=== PATIENT | male | born 1985 | race African-American/Black ===

== ENCOUNTER 2016-10-03 18:15 | Emergency (ER) | payer OTHER ==
[2016-10-03 18:38] VITALS: BP 126/77; PULSE 109; TEMP 102; BMI 65.3
--- NOTE | 2016-10-03 19:37 | PDOC ---
History of Present Illness <Tomás Morrison - Last Filed: 10/03/16 19:36> - General History Source: Patient, Old Records Exam Limitations: No Limitations - History of Present Illness Initial Comments: 10/03/16 20:05 The patient is a 31 year old male with no significant past medical history who presents to the ED with cold like symptoms. The patient reports throat paint and body aches. The patient notes that he has had sick contacts at home. <Salty Watt - Last Filed: 10/03/16 23:55> - General Chief Complaint: Pain, Acute Stated Complaint: FEVER/SORE THROAT/BODY ACHE Time Seen by Provider: 10/03/16 19:34 Past History - Past Medical History Suicide Attempt (Hx): No Other medical history: PT DENIES MEDICAL HX - Immunization History Immunization Up to Date: No - Psycho/Social/Smoking Cessation Hx Anxiety: No Suicidal Ideation: No Smoking Status: No Smoking History: Former smoker Have you smoked in the past 12 months: No Number of Cigarettes Smoked Daily: 0 If you are a former smoker, when did you quit?: 2009 Information on smoking cessation initiated: No Hx Alcohol Use: No Drug/Substance Use Hx: No Substance Use Type: None <Tomás Morrison - Last Filed: 10/03/16 19:36> <Salty Watt - Last Filed: 10/03/16 23:55> - Past Medical History Allergies/Adverse Reactions: Allergies Allergy/AdvReac Type Severity Reaction Status Date / Time No Known Allergies Allergy Verified 10/03/16 18:38 Home Medications: Ambulatory Orders NK [No Known Home Medication] 10/03/16 Review of Systems - Review of Systems Able to Perform ROS?: Yes Constitutional: Yes: Symptoms Reported, See HPI, Other HEENTM: Yes: Symptoms Reported, See HPI, Throat Swelling Musculoskeletal: Yes: Symptoms Reported, See HPI, Other <Salty Watt - Last Filed: 10/03/16 23:55> *Physical Exam - Vital Signs Last Vital Signs Temp Pulse Resp BP Pulse Ox 102.0 F H 109 H 18 126/77 97 10/03/16 18:35 10/03/16 18:35 10/03/16 18:35 10/03/16 18:35 10/03/16 18:35 <Tomás oMrrison - Last Filed: 10/03/16 19:36> - Vital Signs Last Vital Signs Temp Pulse Resp BP Pulse Ox 102.0 F H 109 H 18 126/77 97 10/03/16 18:35 10/03/16 18:35 10/03/16 18:35 10/03/16 18:35 10/03/16 18:35 - Physical Exam Comments: 10/03/16 20:05 PE GEN: AA NAD HEEN: Clear NECK: Lymphadenopathy but supple CARD: Normal RESP: Clear ABD: Soft NEURO: Intact <Salty Watt - Last Filed: 10/03/16 23:55> *DC/Admit/Observation/Transfer <Tomás Morrison - Last Filed: 10/03/16 19:36> - Attestations Scribe Attestion: 10/03/16 20:07 Documentation prepared by Salty Watt, acting as chief medical technologist for Tomás Morriosn MD. <Salty Watt - Last Filed: 10/03/16 23:55> Diagnosis at time of Disposition: Viral syndrome - Discharge Dispostion Disposition: HOME Condition at time of disposition: Good - Referrals Referrals: STAFF,NOT ON [Primary Care Provider] - Call tomorrow - Patient Instructions Additional Instructions: PLENTY OF FLUIDS (WATER/GATORADE) MOTRIN/TYLENOL FOR FEVER OR PAIN REST RETURN IF FEVER, VOMITING, SHORTNESS OF BREATH
== END 2016-10-03 19:42 | disposition home or self-care (01) ==
LOC: JER 18:15
DX: B34.9 Viral infection, unspecified (principal)
CPT/HCPCS: 99282-25

== ENCOUNTER 2016-10-25 13:04 | Emergency (ER) | payer OTHER ==
[2016-10-25 13:24] VITALS: BP 125/77; PULSE 80; TEMP 98.2; BMI 29.0
--- NOTE | 2016-10-25 14:15 | PDOC ---
History of Present Illness - General Chief Complaint: Cold Symptoms Stated Complaint: HEADACHES, SORE THROAT Time Seen by Provider: 10/25/16 13:22 History Source: Patient - History of Present Illness Timing/Duration: reports: yesterday Associated Symptoms: reports: cough, fever/chills, headache, sore throat. denies: chest pain/soreness, earache, facial pain, muscle aches, nasal congestion, nasal drainage, wheezing Past History - Past Medical History Allergies/Adverse Reactions: Allergies Allergy/AdvReac Type Severity Reaction Status Date / Time No Known Allergies Allergy Verified 10/25/16 13:18 Home Medications: Ambulatory Orders NK [No Known Home Medication] 10/03/16 Hypercholesterolemia: Yes Suicide Attempt (Hx): No - Immunization History Immunization Up to Date: No - Psycho/Social/Smoking Cessation Hx Anxiety: No Suicidal Ideation: No Smoking Status: No Smoking History: Former smoker Have you smoked in the past 12 months: No Number of Cigarettes Smoked Daily: 0 If you are a former smoker, when did you quit?: 2009 Information on smoking cessation initiated: No Hx Alcohol Use: No Drug/Substance Use Hx: No Substance Use Type: None Review of Systems - Review of Systems Constitutional: Yes: Fever HEENTM: No: Ear Pain, Nose Congestion Respiratory: Yes: Cough. No: Shortness of Breath, Wheezing ABD/GI: No: Diarrhea, Nausea, Vomiting *Physical Exam - Vital Signs Last Vital Signs Temp Pulse Resp BP Pulse Ox 98.2 F 80 19 125/77 99 10/25/16 13:18 10/25/16 13:18 10/25/16 13:18 10/25/16 13:18 10/25/16 13:18 - Physical Exam General Appearance: Yes: Appropriately Dressed. No: Apparent Distress HEENT: positive: Normal ENT Inspection, Normal Voice. negative: Scleral Icterus (R), Scleral Icterus (L) Neck: positive: Supple. negative: Lymphadenopathy (R), Lymphadenopathy (L) Respiratory/Chest: positive: Lungs Clear, Normal Breath Sounds. negative: Respiratory Distress Cardiovascular: positive: Regular Rate, S1, S2 Integumentary: positive: Dry, Warm Neurologic: positive: Fully Oriented, Alert, Normal Mood/Affect Medical Decision Making - Medical Decision Making 10/25/16 14:19 31 yo M, no sig hx, here w/ sore throat w/ cough, WORKMAN and subj fever x 2 days. No sob, neck stiffness, n/v/d. Pt was seen in ED several weeks ago and dx w/ uri. States sxs improved then but re-occured 2 days ago. Denies sick contacts. Patient well-appearing and stable with unremarkable exam. Most likely viral. DC with supportive treatment and PMD follow-up 10/25/16 14:24 *DC/Admit/Observation/Transfer Diagnosis at time of Disposition: URI (upper respiratory infection) Qualifiers: URI type: unspecified viral URI Qualified Code(s): J06.9 - Acute upper respiratory infection, unspecified - Discharge Dispostion Disposition: HOME Condition at time of disposition: Good - Patient Instructions Printed Discharge Instructions: DI for Viral Upper Respiratory Infection -- Adult
== END 2016-10-25 14:21 | disposition home or self-care (01) ==
LOC: JER 13:04 → JERFT 13:04
DX: J06.9 Acute upper respiratory infection, unspecified (principal)
CPT/HCPCS: 99281-25

== ENCOUNTER 2017-04-08 21:08 | Emergency (ER) | payer OTHER ==
[2017-04-08 21:34] VITALS: BP 121/66; PULSE 77; TEMP 97.5; BMI 28.8
--- NOTE | 2017-04-08 21:57 | PDOC ---
Attending Attestation - HPI HPI: 04/08/17 23:16 Pt comes with headache on and off. Ongoing for a week. - Physicial Exam PE: 04/08/17 23:16 Agree with resident exam. - Medical Decision Making 04/08/17 23:16 Patient Name: Ayo Agudelo THIS IS A PRELIMINARYREPORT FROM IMAGING FINANCIAL ACCOUNTING ANALYST EXAM: CT brain without contrast IMAGES: 167 EXAM DATE AND TIME: 2017-04-08 22: 34:24.0 REASON FOR EXAM: Headache COMPARISON: No FINDINGS: Normal brain. No acute intracranial abnormality. No hemorrhage. No visible infarct or mass. Osseous structures are intact THIS DOCUMENT HAS BEEN ELECTRONICALLY SIGNED 04/08/17 23:17 Pt will be discharged home with analgesia 04/08/17 23:18 Neuro follow up.
[2017-04-08] MEDS ORDERED: ACETAMINOPHEN 325 MG TABLET (FP) PO ONE (22:01)
--- NOTE | 2017-04-08 22:01 | PDOC ---
History of Present Illness - General Chief Complaint: Pain Stated Complaint: HEAD ACHE Time Seen by Provider: 04/08/17 21:46 - History of Present Illness Initial Comments: 04/08/17 22:21 Patient is a 31 year old male with no PMH who presents with concern for headache. The patient reports a 1 week history of intermittent sharp left sided occipital headaches lasting 2-3 minutes before self resolving prompting his visit to the ED today. He states that he has not had headaches like this before and states that they feel more superficial than deep. He reports that nothing worsens the headaches and he has not tried anything for them as they usually self resolve. He denies any vision changes, photophobia, phonophobia, numbness, tingling, weakness, fevers, chills, SOB, chest pain, abdominal pain, or changes with urination or bowel movements. Past History - Past Medical History Allergies/Adverse Reactions: Allergies Allergy/AdvReac Type Severity Reaction Status Date / Time No Known Allergies Allergy Verified 04/08/17 21:24 Home Medications: Ambulatory Orders Omeprazole 40 mg PO DAILY 04/08/17 Hypercholesterolemia: Yes Suicide Attempt (Hx): No - Immunization History Immunization Up to Date: No - Psycho/Social/Smoking Cessation Hx Anxiety: No Suicidal Ideation: No Smoking Status: No Smoking History: Never smoked Have you smoked in the past 12 months: No Number of Cigarettes Smoked Daily: 0 If you are a former smoker, when did you quit?: 2009 Information on smoking cessation initiated: No Hx Alcohol Use: No Drug/Substance Use Hx: No Substance Use Type: None Review of Systems - Review of Systems Constitutional: No: Chills, Fever HEENTM: No: Recent change in vision, Double Vision, Nose Congestion, Hearing Loss Respiratory: No: Cough, Shortness of Breath Cardiac (ROS): No: Chest Pain, Palpitations, Chest Tightness ABD/GI: No: Constipated, Diarrhea, Nausea, Vomiting : No: Burning, Dysuria Musculoskeletal: No: Neck Pain Integumentary: No: Rash Neurological: Yes: Headache. No: Numbness, Paresthesia, Tingling, Weakness *Physical Exam - Vital Signs Last Vital Signs Temp Pulse Resp BP Pulse Ox 97.5 F L 77 20 121/66 100 04/08/17 21:24 04/08/17 21:24 04/08/17 21:24 04/08/17 21:24 04/08/17 21:24 - Physical Exam Comments: 04/08/17 22:27 General Appearance: Nourished. No Apparent Distress HEENT: EOMI, CHRISTY. negative: Photophobia, Pharyngeal Erythema, Tonsillar Exudate, Tonsillar Erythema Respiratory/Chest: Lungs Clear, Normal Breath Sounds. No Crackles, Rales, Rhonchi, Wheezing Cardiovascular: Regular Rhythm, Regular Rate. No Murmur, Gallop/S3, Gallop/S4 Gastrointestinal/Abdominal: Normal Bowel Sounds, Soft. No Guarding, Rebound, Tenderness Extremity: Normal Capillary Refill Integumentary: Normal Color, Dry, Warm Neurologic: hydrator II-XII NML intact, Fully Oriented, Alert, Normal Mood/Affect, Normal Response, Motor Strength 5/5. No Facial Droop, Normal Finger to Nose ED Treatment Course - RADIOLOGY Radiology Studies Ordered: Category Date Time Status HEAD CT WITHOUT CONTRAST [CT] Stat CT Scan 04/08/17 22:01 Ordered Medical Decision Making - Medical Decision Making 04/08/17 23:10 Patient is a 31 year old male with no PMH who presents with concern for headache. Given his history and physical exam, it is likely his symptoms are due to a tension headache or migraine. However we will obtain a CT head to evaluate for any other intracrainal process such as subarrachnoid hemorrhage. The patient is not currently having headache and we will reevaluate him after CT. 04/08/17 23:21 CT head preliminarily read as no acute intracranial process by news production assistant radiologist pending official read. Patient reports improvement in his symptoms. We discussed the results with the patient and feel comfortable discharging him home with neurology follow up. The patient voiced understanding and is agreeable with the plan. *DC/Admit/Observation/Transfer Diagnosis at time of Disposition: Headache Qualifiers: Headache type: unspecified Headache chronicity pattern: unspecified pattern Intractability: not intractable Qualified Code(s): R51 - Headache - Discharge Dispostion Disposition: HOME Condition at time of disposition: Improved Admit: No - Referrals Referrals: Libby Vargas MD [Primary Care Provider] - Luis Zuñiga MD [Staff Physician] - - Patient Instructions Printed Discharge Instructions: DI for Headache Additional Instructions: Please return to the ER if you experience concerning or worsening symptoms. Please call to follow up with our neurologist for concerns of headache. The number has been provided with your paperwork. Please follow up with your primary care provider to discuss your ER visit. - Attestations Physician Attestion: 04/08/17 23:24 I, Dr. Roger Brody, attest that this document has been prepared under my direction and personally reviewed by me in its entirety. I further attest, that it accurately reflects all work, treatment, procedures and medical decision -making performed by me.
[2017-04-08] MEDS ORDERED: ACETAMINOPHEN 325 MG TABLET (FP) ONE (22:10)
== END 2017-04-08 23:39 | disposition home or self-care (01) ==
LOC: JER 21:08
DX: R51 Headache (principal); Z87.891 Personal history of nicotine dependence
CPT/HCPCS: 70450-TC; 99282-25

== ENCOUNTER 2017-07-20 07:58 | Observation (INO) | payer OTHER ==
[2017-07-20 08:07] VITALS: BMI 28.8
--- NOTE | 2017-07-20 08:33 | PDOC ---
History of Present Illness - General Chief Complaint: Pain, Acute Stated Complaint: EYE PROBLEM Time Seen by Provider: 07/20/17 08:15 - History of Present Illness Initial Comments: 07/20/17 08:16 32 yo M with no significant pmh who presents with R eye painless vision loss. Patient reports onset of central painless R eye visual loss for 3-5 minutes this AM upon awakening. Went to sleep at 11 AM yest evening. States that he woke up and could not see anything out of R eye. He rubbed his eye for 3-5 minutes and vision was restored. Endorses 1 week of fleeting blurry vision lasting seconds and resolving spontaneously. No illiciting factors. Endorses mild frontal WORKMAN x 2 this week, and current reflux type pain. No eye redness, pruritus, discharge,foreign body sensation, or dry eyes. Denies eye trauma, scratching, or recent swimming. Denies N/V, fevers/chills, chest pain, SOB, weakness, sensory changes, dizziness, slurred speech, drooping of face. Last seen by Recreation Facility Attendant 2 months ago with negative workup. Attempted to go to outpatient scheduler this week. CT HEAD (04/08/17) unremarkable. Past History - Past Medical History Allergies/Adverse Reactions: Allergies Allergy/AdvReac Type Severity Reaction Status Date / Time No Known Allergies Allergy Verified 07/20/17 08:00 Home Medications: Ambulatory Orders Omeprazole 40 mg PO DAILY 04/08/17 COPD: No Hypercholesterolemia: Yes - Immunization History Immunization Up to Date: No - Suicide/Smoking/Psychosocial Hx Smoking Status: No Smoking History: Former smoker Have you smoked in the past 12 months: Yes Number of Cigarettes Smoked Daily: 0 If you are a former smoker, when did you quit?: 10 yrs ago Information on smoking cessation initiated: No Hx Alcohol Use: No Drug/Substance Use Hx: No Substance Use Type: None Review of Systems - Review of Systems Comments:: 07/20/17 08:57 GENERAL/CONSTITUTIONAL: No fever or chills. No weakness. HEAD, EYES, EARS, NOSE AND THROAT: Right eye vision loss. No ear pain or discharge. No sore throat.- CARDIOVASCULAR: No chest pain or shortness of breath RESPIRATORY: No cough, wheezing, or hemoptysis. GASTROINTESTINAL: + Abdominal pain. No nausea, vomiting, diarrhea or constipation. GENITOURINARY: No dysuria, frequency, or change in urination. MUSCULOSKELETAL: No joint or muscle swelling or pain. No neck or back pain. SKIN: No rash NEUROLOGIC: No headache, vertigo, loss of consciousness, or change in strength/ sensation. ENDOCRINE: No increased thirst. No abnormal weight change HEMATOLOGIC/LYMPHATIC: No anemia, easy bleeding, or history of blood clots. ALLERGIC/IMMUNOLOGIC: No hives or skin allergy. *Physical Exam - Vital Signs Last Vital Signs Temp Pulse Resp BP Pulse Ox 97.9 F 83 20 130/92 100 07/20/17 08:00 07/20/17 08:00 07/20/17 08:00 07/20/17 08:00 07/20/17 08:00 - Physical Exam Comments: 07/20/17 08:58 GENERAL: Awake, alert, and fully oriented, in no acute distress HEAD: No signs of trauma, normocephalic, atraumatic EYES: PERRLA, EOMI, sclera anicteric, conjunctiva clear. Fundoscopic exam with no evidence of vascular engorgement or papilledema. Visual acuity 20/25 L eye and 20/40 R eye. Peripheral vision intact. ENT: Auricles normal inspection, hearing grossly normal, nares patent, oropharynx clear without exudates. Moist mucosa NECK: Normal ROM, supple, no lymphadenopathy, JVD, or masses LUNGS: No distress, speaks full sentences, clear to auscultation bilaterally HEART: Regular rate and rhythm, normal S1 and S2, no murmurs, rubs or gallops, peripheral pulses normal and equal bilaterally. ABDOMEN: Soft, nontender, normoactive bowel sounds. No guarding, no rebound. No masses EXTREMITIES : Normal inspection, Normal range of motion, no edema. No clubbing or cyanosis. NEUROLOGICAL: Cranial nerves II through XII grossly intact. Normal speech, normal gait, no focal sensorimotor deficits SKIN: Warm, Dry, normal turgor, no rashes or lesions noted. Heart Score/ECG Review - History History: Slightly suspicious - Electrocardiogram EKG: Normal - Carrier Carrier: Normal - ECG Impressions Normal ECG: Yes Non-specific ST Elevation: No Ischemic Changes: No Bradycardia: No Torsades sandra Pointes: No WPW: No ED Treatment Course - LABORATORY CBC & Chemistry Diagram: 07/20/17 08:58 07/20/17 08:58 Medical Decision Making - Medical Decision Making 07/20/17 09:09 32 yo M with no significant pmh who presents rapid onset of central painless R eye visual loss for 3-5 minutes with spontaneous resolution this AM upon awakening. Endorses 1 week of fleeting blurry vision lasting seconds and resolving spontaneously. Endorses mild frontal WORKMAN x 2 this week, and current reflux type pain. No eye redness, pruritus, discharge,foreign body sensation, or dry eyes. Denies eye trauma, scratching, or recent swimming. Does not wear contacts or glasses. Denies N/V, fevers/chills, weakness, sensory changes, dizziness, slurred speech, drooping of face. Physical exam did not reveal neuro deficits, or peripheral vision defects. L eye 20/25. R eye 20/40. Hemodynamically stable Patient does not present with neurological deficits, and has negative pre hospital [facility] stroke score. Will work pt. up for Stroke/TIA r/o. Also reasonable to consider optic neuritis vs. Amaurosis fugax vs. ocular migraine in patient with painless vision loss. Low suspicion for acute angle glaucoma, retinal vein/artery occlusion, or retinal detachment. Patient currently asymptomatic. ED Course: Stroke/TIA protocol, CT HEAD NON CON, CBC, CMP, Lipase PEPCID, NS 1 L NIHSS: 0 07/20/17 09:47 07/20/17 09:53 EKG: NSR with absent JIMMIE, STD, or TWI. Ophthalmology consult Dr. Kaye Franco called and discussed patient case. Will call back following vision recheck. 07/20/17 10:43 CT HEAD: No acute hemorrhage or acute pathology. 07/20/17 11:25 07/20/17 11:26 CBC, CMP: Unremarkable 07/20/17 11:30 Will admit to OBS/Inpatient for further evaluation and MRI. Admit to Dr. Maggi Naik. 07/20/17 12:59 Repeat Visual Acuity 20/25 R, 20/25 L *DC/Admit/Observation/Transfer Diagnosis at time of Disposition: Vision loss of right eye - Discharge Dispostion Admit: Yes - Referrals - Patient Instructions - Post Discharge Activity
[2017-07-20] MEDS ORDERED: FAMOTIDINE 20 MG/50 ML IVPB 20 MG/50 ML MG IVPB ONE ×2 (08:55→08:59)
[2017-07-20] MEDS ORDERED: SODIUM CHLORIDE 1,000 ML IV SCH (09:00)
[2017-07-20 09:32] LABS: URINE APPEARANCE CLEAR; URINE BILIRUBIN NEGATIVE (NEGATIVE); URINE BLOOD NEGATIVE (NEGATIVE); URINE COLOR LT. YELLOW; URINE GLUCOSE (UA) NEGATIVE (NEGATIVE); URINE KETONE NEGATIVE (NEGATIVE); URINE NITRITE NEGATIVE (NEGATIVE); URINE PROTEIN NEGATIVE (NEGATIVE); URINE UROBILINOGEN 0.2 mg/dL (0.2-1.0)
[2017-07-20 09:33] LABS: BASOPHIL 0.7 % (0-2.0); EOSINOPHIL 1.9 % (0-4.5); MCH 30.4 pg (25.7-33.7); MCHC 33.6 g/dl (32.0-35.9); MEAN CELL VOLUME 90.7 fl (80-96); NEUTROPHILS 54.1 % (42.8-82.8); PLATELET COUNT 194 K/MM3 (134-434); RDW 13.4 % (11.9-15.9); WHITE BLOOD COUNT 5.4 K/mm3 (4.0-10.0)
--- NOTE | 2017-07-20 09:42 | PDOC ---
Attending Attestation - Resident Resident Name: Quentin Lacey - ED Attending Attestation I have performed the following: I have examined & evaluated the patient, The case was reviewed & discussed with the resident, I agree w/resident's findings & plan, Exceptions are as noted - HPI HPI: 07/20/17 09:33 32 year old male with no past medical history presents with right eye temporary loss of vision. The patient reported bilateraly eye blurriness for a week. Does not wear contacts or glasses. Stated this morning, woke up this morning at 6 am (after going to bed at 11 pm the night before). Stated that he woke up and he had complete central vision loss (with preservation of the periphery). Stated that he rubbed his eye for several minutes, and his vision returned. Denied headaches, nausea, vomiting. Denies other neurological deficits such as slurring of speech, drooling, numbness, weakness. Denied chest pain or SOB. Denies family history of demyleinating disease or strokes. 07/20/17 09:43 Also endorses 1 week of epigastric abd pain improved with eating. Burning sensation. States likely his GERD. - Physicial Exam PE: 07/20/17 09:42 GENERAL: NAD, AAOx3 HEENT: PUPILS Reactive and equal to light, no visual field cut deficits, OS: 20/ 25, OD: 20/40, no injection or discharge. NECK: supple CV: RRR, +S1, s2 PULM: CTA b/l ABD: soft, nondistended, nontender., NEURO: CN II-XII intact. 5/5 strength upper and lower extremities. sensation intact throughou. Speech normal. Gait normal, No pronator drift. - Medical Decision Making 07/20/17 09:46 Vital Signs Temp Pulse Resp BP Pulse Ox 97.9 F 70 20 130/92 100 07/20/17 08:00 07/20/17 08:53 07/20/17 08:00 07/20/17 08:00 07/20/17 08:53 32 year old male presents with transient R eye loss concerning for optic neuritis vs. central retinal arterial occlusion vs. amarosis fugax. Eye currently back at baseline. Pt endorsed NO curtains or floaters or flashing lights. Neurologically intact. Outside the TPA window. However, will need to consider TIA as well. Head CT Labs Optho consult Aspirin if head CT shows no hemorrhage. Admit 07/20/17 10:42 CBC, BMP 07/20/17 08:58 07/20/17 08:58 CMP Sodium 138 mmol/L (136-145) 07/20/17 08:58 Potassium 4.1 mmol/L (3.5-5.1) 07/20/17 08:58 Chloride 104 mmol/L (98-107) 07/20/17 08:58 Carbon Dioxide 30 mmol/L (21-32) 07/20/17 08:58 Anion Gap 4 (8-16) L 07/20/17 08:58 BUN 16 mg/dL (7-18) 07/20/17 08:58 Creatinine 1.1 mg/dL (0.7-1.3) 07/20/17 08:58 Creat Clearance w eGFR > 60 (>60) 07/20/17 08:58 Random Glucose 105 mg/dL (74-106) 07/20/17 08:58 Calcium 8.6 mg/dL (8.5-10.1) 07/20/17 08:58 Total Bilirubin 0.4 mg/dL (0.2-1.0) 07/20/17 08:58 AST 13 U/L (15-37) L 07/20/17 08:58 ALT 34 U/L (12-78) 07/20/17 08:58 Alkaline Phosphatase 60 U/L (45-117) 07/20/17 08:58 Creatine Kinase 143 IU/L (39-308) 07/20/17 08:58 Troponin I < 0.02 ng/ml (0.00-0.05) 07/20/17 08:58 Total Protein 8.2 g/dl (6.4-8.2) 07/20/17 08:58 Albumin 4.1 g/dl (3.4-5.0) 07/20/17 08:58 Triglycerides 73 mg/dL (35-160) 07/20/17 08:58 Cholesterol 195 mg/dL (50-200) 07/20/17 08:58 Total LDL Cholesterol 123 mg/dL (5-100) H 07/20/17 08:58 HDL Cholesterol 54 mg/dL (40-60) 07/20/17 08:58 Lipase 113 U/L (73-393) 07/20/17 08:58 Urine Test Results Urine Color Lt. yellow 07/20/17 08:58 Urine Appearance Clear 07/20/17 08:58 Urine pH 6.0 (5.0-8.0) 07/20/17 08:58 Ur Specific [place] 1.010 (1.001-1.035) 07/20/17 08:58 Urine Protein Negative (NEGATIVE) 07/20/17 08:58 Urine Glucose (UA) Negative (NEGATIVE) 07/20/17 08:58 Urine Ketones Negative (NEGATIVE) 07/20/17 08:58 Urine Blood Negative (NEGATIVE) 07/20/17 08:58 Urine Nitrite Negative (NEGATIVE) 07/20/17 08:58 Urine Bilirubin Negative (NEGATIVE) 07/20/17 08:[address] negative. Consult neuro 07/20/17 11:09 Dr. Lacey discussed consultation with Dr. Fuller (neuro) Case discussed with [facility] hospitalist. Admit to tele obs Heart Score/ECG Review #1 ECG reviewed & interpreted by me at: 09:30 07/20/17 09:49 NSR 72, no std/[place], normal axis, normal intervals, QTC 392 msec NIH Stroke Scale - Last Known Well Date/Time & Onset Date Last Known Well: 07/19/17 Time Last Known Well: 23:00 - Initial Evaluation Level of consciousness: Alert Ask patient the month and their age: Answers both correctly Ask patient to open & close eyes; make fist and let go: Obeys both correctly Best gaze (horizontal eye movement): Normal Visual field testing: No visual field loss Facial paresis (Show teeth/raise eyebrows/close eyes tight): Normal symmetrical movement Motor Function: Left Arm: Normal Motor Function: Right Arm: Normal (extends arm 90 (or 45) degrees for 10 seconds without drift Motor Function: Left Leg: Normal (extends leg 30 degrees for 5 seconds without drift) Motor Function: Right Leg: Normal (extends leg 30 degrees for 5 seconds without drift) Limb Ataxia: No ataxia Sensory(Use pinprick test arms,legs,trunk,face/side to side): Normal Best language (Describe picture, name items, read sentences): No Aphasia Dysarthria (read several words): Normal articulation Extinction and Inattention: No abnormality - Total Score NIH Stroke Scale Score: 0
[2017-07-20 09:47] LABS: ALBUMIN 4.1 g/dl (3.4-5.0); ANION GAP 4 (8-16); BILIRUBIN,TOTAL 0.4 mg/dL (0.2-1.0); CALCIUM 8.6 mg/dL (8.5-10.1); CHOLESTEROL 195 mg/dL (50-200); CO2 30 mmol/L (21-32); CREATININE 1.1 mg/dL (0.7-1.3); GLUCOSE,RANDOM 105 mg/dL (74-106); SGOT/AST 13 U/L (15-37); SGPT/ALT 34 U/L (12-78); TOT PROT 8.2 g/dl (6.4-8.2)
[2017-07-20 09:48] LABS: ALK PHOS 60 U/L (45-117); CPK 143 IU/L (39-308); TROPONIN I < 0.02 ng/ml (0.00-0.05)
[2017-07-20 09:55] LABS: INR 1.05 (0.82-1.09); PROTHROMBIN TIME (PATIENT) 11.9 SEC (9.98-11.88)
--- NOTE | 2017-07-20 11:58 | CON.NEURO ---
Consult Consult Specialty:: Neurology Referred by:: Dudley Faria MD Reason for Consultation:: Transient Right Unilateral Visual [place] - History of Present Illness Chief Complaint: I couldn't see out of my right eye History of Present Illness: Mr. Agudelo awoke around 7AM to walk his dog, feeling OK, and while walking noticed that he couldn't see well out of his right eye. He describes a central area of severe blurring that totally obscured his vision centrally, as if he had an eyelash in front of his eye. He kept rubbing his eye and after about 3 minutes his vision returned to normal. He denies any headache or eye pain around the time of the event and at this point his vision is normal. His only complaint now is a vaguely described sense of abnormal feelings in his legs, variably described "as if my blood were flowing" or "tingling". He denies recent headaches. He was evaluated in the ER in March for about a week of head "pains" brief intermittent sharp pains at various points in his head, with no associated symptoms, such as photophobia, phonophobia or nausea. He had a normal CT and after a week the pains disappeared and haven't bothered him since. He says that over the past week he's been going to eye doctors complaining of intermittent bilateral visual blurring, not like this. He denies a family history of migraine. 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 Home Medications - Allergies Allergies/Adverse Reactions: Allergies Allergy/AdvReac Type Severity Reaction Status Date / Time No Known Allergies Allergy Verified 07/20/17 08:00 - Home Medications Home Medications: Ambulatory Orders Omeprazole 40 mg PO DAILY 04/08/17 Family Disease History - Family Disease History Family History: Unremarkable (some diabetes, cancer, no migraine) Review of Systems Findings/Remarks: no headaches, other sensory loss, Physical Exam-Neuro Vital Signs: Vital Signs Temperature 97.9 F 07/20/17 08:00 Pulse Rate 70 07/20/17 08:53 Respiratory Rate 20 11/23/17 08:00 Blood Pressure 130/92 07/20/17 08:00 O2 Sat by Pulse Oximetry (%) 100 07/20/17 08:53 Constitutional: Yes: Well Nourished, No Distress, Calm Labs: CBC, BMP 07/20/17 08:58 07/20/17 08:58 INR, PTT INR 1.05 (0.82-1.09) 07/20/17 08:58 - Neuro Exam Level Of Consciousness: Yes: Alert, Oriented to Person, Oriented to Place, Oriented to Time Eyes: Yes: CHRISTY Speech: WNL Cranial Nerves II-XII Intact: Yes DTR's: 2+ Left Bicep, 2+ Right Bicep, 2+ Left Tricep, 2+ Right Tricep, 2+ Left Brachioradialis, 2+ Right Brachioradialis, 2+ Left Achilles, 2+ Right Achilles Babinski: Absent Response to light touch: Normal Response to temperature: Normal Motor Strength: 5/5: Left Arm, Right Arm, Left Leg, Right Leg Gait: Normal Imaging - Results Cat Scan: Report Reviewed, Image Reviewed (normal) Problem List - Problems (1) Transient visual loss of right eye Code(s): H53.121 - TRANSIENT VISUAL LOSS, RIGHT EYE Assessment/Plan 3 minutes of central visual obscuration/blurring without associated headache. This places the problem prechiasmatic, either retinal or less likely in the optic nerve. This could be migrainous, though I'd consider it a diagnosis of exclusion as he has no associated headache and its a single event and we should rule out ocular pathology as well. Agree with opthalmology consult. Would also get carotid duplex and cardiac monitoring to rule out embolic disease to the central retinal artery. Thanks.
[2017-07-20 12:52] LABS: URINE LEUK ESTERASE Negative (NEGATIVE)
--- NOTE | 2017-07-20 13:13 | HP ---
CHIEF COMPLAINT: "lost vision in my right eye for 3 minutes this morning" PCP: Liseth Mendoza MD HISTORY OF PRESENT ILLNESS: This is a 32 year old male with PMHx of headache (?migraines), who presented to the ED with transient loss of vision in his right eye. The patient states that for about 1 week he has been noticing b/l intermittent blurred vision. He states he woke up this morning and during a walk outside with his dog noticed complete right central vision loss (with preserved periphery). He states he rubbed his right eye for about 3 minutes and his full vision returned. He reports when he returned home he looked in the mirror and noticed his pupils were large and the right was greater than the left. He denies any visual floaters, associated headache or migraine, nausea, vomiting, blurred vision. He denies any family history of demyelinating disease or strokes. Off note, the patient states he sees Dr. Huang (heme/onc), but does not know why. ER course was notable for: (1) Head CT with no acute intracranial hemorrhage, mass effect, or hydrocephalus. No compelling evidence of acute transcortical infarction at this time (2) Carotid doppler: no evidence of hemodynamically significant stenosis (3) Temp 98.2, pulse 85, BP 129/88, resp 18, O2 100% on RA Recent Travel: denies PAST MEDICAL HISTORY: denies PAST SURGICAL HISTORY: denies Social History: Smoking: denies, quit 2008 Alcohol: occasionally 2x per month Drugs: denies Family History: Mother DM, maternal grandmother DM, renal carcinoma Allergies No Known Allergies Allergy (Verified 07/20/17 08:00) HOME MEDICATIONS: Home Medications Medication Instructions Recorded Omeprazole 40 mg PO DAILY 04/08/17 REVIEW OF SYSTEMS CONSTITUTIONAL: Absent: fever, chills, diaphoresis, generalized weakness, malaise, loss of appetite, weight change HEENT: Right eye central visual loss this morning with preserved peripheral view which resolved after rubbing his eye. Absent: rhinorrhea, nasal congestion , throat pain, throat swelling, difficulty swallowing, mouth swelling, ear pain , eye pain CARDIOVASCULAR: Absent: chest pain, syncope, palpitations, irregular heart rate , lightheadedness, peripheral edema RESPIRATORY: Absent: cough, shortness of breath, dyspnea with exertion, orthopnea, wheezing, stridor, hemoptysis GASTROINTESTINAL:Absent: abdominal pain, abdominal distension, nausea, vomiting , diarrhea, constipation, melena, hematochezia GENITOURINARY: Absent: dysuria, frequency, urgency, hesitancy, hematuria, flank pain, genital pain MUSCULOSKELETAL: Absent: myalgia, arthralgia, joint swelling, back pain, neck pain SKIN: Absent: rash, itching, pallor HEMATOLOGIC/IMMUNOLOGIC: Absent: easy bleeding, easy bruising, lymphadenopathy, frequent infections ENDOCRINE:Absent: unexplained weight gain, unexplained weight loss, heat intolerance, cold intolerance NEUROLOGIC: Absent: headache, focal weakness or paresthesias, dizziness, unsteady gait, seizure, mental status changes, bladder or bowel incontinence PSYCHIATRIC: Absent: anxiety, depression, suicidal or homicidal ideation, hallucinations. PHYSICAL EXAMINATION Vital Signs - 24 hr 07/20/17 07/20/17 07/20/17 08:00 08:53 10:15 Temperature 97.9 F 98.4 F Pulse Rate 83 70 Pulse Rate [ 72 Left Apical] Respiratory 20 18 Rate Blood Pressure 130/92 Blood Pressure 128/82 [Left Arm] O2 Sat by Pulse 100 100 98 Oximetry (%) GENERAL: Awake, alert, and fully oriented, in no acute distress. HEAD: Normal with no signs of trauma. EYES: Pupils equal, round and reactive to light, extraocular movements intact, sclera anicteric, conjunctiva clear. No lid lag. EARS, NOSE, THROAT: Ears normal, nares patent, oropharynx clear without exudates. Moist mucous membranes. NECK: Normal range of motion, supple without lymphadenopathy, JVD, or masses. LUNGS: Breath sounds equal, clear to auscultation bilaterally. No wheezes, and no crackles. No accessory muscle use. HEART: Regular rate and rhythm, normal S1 and S2 without murmur, rub or gallop. ABDOMEN: Soft, nontender, not distended, normoactive bowel sounds, no guarding, no rebound, no masses. No hepatomegaly or splenomegaly. MUSCULOSKELETAL: Normal range of motion at all joints. No bony deformities or tenderness. No CVA tenderness. UPPER EXTREMITIES: 2+ pulses, warm, well-perfused. No cyanosis. No clubbing. No peripheral edema. LOWER EXTREMITIES: 2+ pulses, warm, well-perfused. No calf tenderness. No peripheral edema. NEUROLOGICAL: Cranial nerves II-XII intact. Normal speech. Normal gait. PSYCHIATRIC: Cooperative. Good eye contact. Appropriate mood and affect. SKIN: Warm, dry, normal turgor, no rashes or lesions noted, normal capillary refill. Laboratory Results - last 24 hr 07/20/17 07/20/17 07/20/17 08:58 08:58 08:58 WBC 5.4 RBC 4.91 Hgb 15.0 Hct 44.6 MCV 90.7 MCH 30.4 MCHC 33.6 RDW 13.4 Plt Count 194 MPV 10.0 Neutrophils % 54.1 Lymphocytes % 34.4 Monocytes % 8.9 Eosinophils % 1.9 Basophils % 0.7 PT with INR 11.90 H INR 1.05 Sodium Potassium Chloride Carbon Dioxide Anion Gap BUN Creatinine Creat Clearance w eGFR Random Glucose Calcium Total Bilirubin AST ALT Alkaline Phosphatase Creatine Kinase Troponin I Total Protein Albumin Triglycerides Cholesterol Total LDL Cholesterol HDL Cholesterol Lipase Urine Color Lt. yellow Urine Appearance Clear Urine pH 6.0 Ur Specific [place] 1.010 Urine Protein Negative Urine Glucose (UA) Negative Urine Ketones Negative Urine Blood Negative Urine Nitrite Negative Urine Bilirubin Negative Urine Urobilinogen 0.2 Ur Leukocyte Esterase Negative Blood Type Antibody Screen 07/20/17 07/20/17 07/20/17 08:58 08:58 08:58 WBC RBC Hgb Hct MCV MCH MCHC RDW Plt Count MPV Neutrophils % Lymphocytes % Monocytes % Eosinophils % Basophils % PT with INR INR Sodium 138 Potassium 4.1 Chloride 104 Carbon Dioxide 30 Anion Gap 4 L BUN 16 Creatinine 1.1 Creat Clearance w eGFR > 60 Random Glucose 105 Calcium 8.6 Total Bilirubin 0.4 AST 13 L ALT 34 Alkaline Phosphatase 60 Creatine Kinase 143 Troponin I < 0.02 Total Protein 8.2 Albumin 4.1 Triglycerides 73 Cholesterol 195 Total LDL Cholesterol 123 H HDL Cholesterol 54 Lipase 113 Cancelled Urine Color Urine Appearance Urine pH Ur Specific [place] Urine Protein Urine Glucose (UA) Urine Ketones Urine Blood Urine Nitrite Urine Bilirubin Urine Urobilinogen Ur Leukocyte Esterase Blood Type A POSITIVE Antibody Screen Negative Assessment: This is a 32 year old male with PMHx of headache (?migraines), who presented to the ED with transient loss of vision in his right eye. Plan: 1) Transient visual loss of the right eye - Migraine vs. TIA vs. Optic neuritis vs. MS - Visual acuity testing 20/25 L, 20/40 R - R/o embolic disease: cardiac monitoring, carotid dopplers (no evidence of hemodynamically significant stenosis), ECHO - F/u MRI brain and orbits (discussed with neurology) - Awaiting evaluation from ophthamology 2) F/E/N: - Monitor electrolytes - Regular diet 3) Prophylaxis: - OOB ambulating - SCDs bilaterally 4) Dispo: - Awaiting ophthamology consult CODE STATUS: FULL CODE Visit type - Emergency Visit Emergency Visit: Yes ED Registration Date: 07/20/17 Care time: The patient presented to the Emergency Department on the above date and was hospitalized for further evaluation of their emergent condition. - New Patient This patient is new to me today: Yes Date on this admission: 07/20/17 - Critical Care Critical Care patient: No
[2017-07-20] MEDS: FAMOTIDINE 20 MG/50 ML IVPB 20 MG/50 ML MG IVPB SCH (21:47)
--- NOTE | 2017-07-20 22:10 | EKG ---
Test Reason : Blood Pressure : / mmHG Vent. Rate : 072 BPM Atrial Rate : 072 BPM P-R Int : 176 ms QRS Dur : 100 ms QT Int : 358 ms P-R-T Axes : 060 056 024 degrees QTc Int : 392 ms NORMAL SINUS RHYTHM NORMAL ECG WHEN COMPARED WITH ECG OF 12-NOV-2015 20:24, NO SIGNIFICANT CHANGE WAS FOUND Confirmed by OLGA LIDIA TEAGUE MD ([id number]) on 07/20/2017 10:10:13 PM Referred By: Confirmed By:OLGA LIDIA TEAGUE MD
[2017-07-21] MEDS: FAMOTIDINE 20 MG/50 ML IVPB 20 MG/50 ML MG IVPB SCH (10:26)
--- NOTE | 2017-07-21 11:59 | PN ---
Progress Note (short form) - Note Progress Note: Subjective: The patient was seen and examined at the bedside, he states he had some shadows in the central vision of his right eye this morning, which resolved after rubbing his eye for 2 minutes. Awaiting ECHO Current Medications Generic Name Dose Route Start Last Admin Trade Name Tony PRN Reason Stop Dose Admin Famotidine/Sodium Chloride 20 mg in 50 mls @ 100 mls/hr 07/20/17 22:00 10:26 Pepcid 20 Mg Premixed Ivpb - IVPB 100 mls/hr BID APARNA Administration Objective: Vital Signs Period Temp Pulse Resp BP Sys/Belcher Pulse Ox Last 24 Hr 98 F-98.3 F 65-86 18-18 106-132/65-88 100-100 Physical Exam: General: NAD, A&Ox3 HEENT: PERRLA, EOMI Lungs: CTA bilaterally Heart: RRR, S1S2, No murmurs Abd: Soft, non-tender, non-distended. Normoactive bowel sounds Ext: Warm, well-perfused. 2+ DP/PT bilaterally CBCD WBC 5.4 K/mm3 (4.0-10.0) 07/20/17 08:58 RBC 4.91 M/mm3 (4.00-5.60) 07/20/17 08:58 Hgb 15.0 GM/dL (11.7-16.9) 07/20/17 08:58 Hct 44.6 % (35.4-49) 07/20/17 08:58 MCV 90.7 fl (80-96) 07/20/17 08:58 MCHC 33.6 g/dl (32.0-35.9) 07/20/17 08:58 RDW 13.4 % (11.9-15.9) 07/20/17 08:58 Plt Count 194 K/MM3 (134-434) 07/20/17 08:58 MPV 10.0 fl (7.5-11.1) 07/20/17 08:58 CMP Sodium 138 mmol/L (136-145) 07/20/17 08:58 Potassium 4.1 mmol/L (3.5-5.1) 07/20/17 08:58 Chloride 104 mmol/L (98-107) 07/20/17 08:58 Carbon Dioxide 30 mmol/L (21-32) 07/20/17 08:58 Anion Gap 4 (8-16) L 07/20/17 08:58 BUN 16 mg/dL (7-18) 07/20/17 08:58 Creatinine 1.1 mg/dL (0.7-1.3) 07/20/17 08:58 Creat Clearance w eGFR > 60 (>60) 07/20/17 08:58 Random Glucose 105 mg/dL (74-106) 07/20/17 08:58 Calcium 8.6 mg/dL (8.5-10.1) 07/20/17 08:58 Total Bilirubin 0.4 mg/dL (0.2-1.0) 07/20/17 08:58 AST 13 U/L (15-37) L 07/20/17 08:58 ALT 34 U/L (12-78) 07/20/17 08:58 Alkaline Phosphatase 60 U/L (45-117) 07/20/17 08:58 Total Protein 8.2 g/dl (6.4-8.2) 07/20/17 08:58 Albumin 4.1 g/dl (3.4-5.0) 07/20/17 08:58 CARDIAC ENZYMES Creatine Kinase 143 IU/L (39-308) 07/20/17 08:58 Troponin I < 0.02 ng/ml (0.00-0.05) 07/20/17 08:58 Assessment: This is a 32 year old male with PMHx of headache (?migraines), who presented to the ED with transient loss of vision in his right eye. Plan: 1) Low grade central retinal vein occlusion - Visual acuity testing 20/25 L, 20/40 R - Denies illicit drug use - R/o embolic disease: cardiac monitoring, carotid dopplers (no evidence of hemodynamically significant stenosis), ECHO - [facility] MRI reviewed - Appreciate ophthomology consult: f/u outpatient 2) F/E/N: - Monitor electrolytes - Regular diet 3) Prophylaxis: - OOB ambulating - SCDs bilaterally 4) Dispo: - Awaiting ophthamology consult CODE STATUS: FULL CODE Visit type - Emergency Visit Emergency Visit: Yes ED Registration Date: 07/20/17 Care time: The patient presented to the Emergency Department on the above date and was hospitalized for further evaluation of their emergent condition. - New Patient This patient is new to me today: No - Critical Care Critical Care patient: No
--- NOTE | 2017-07-21 13:47 | PN ---
Progress Note, Physician History of Present Illness: Mr. Agudelo awoke around 7AM to walk his dog, feeling OK, and while walking noticed that he couldn't see well out of his right eye. He describes a central area of severe blurring that totally obscured his vision centrally, as if he had an eyelash in front of his eye. He kept rubbing his eye and after about 3 minutes his vision returned to normal. He denies any headache or eye pain around the time of the event and at this point his vision is normal. His only complaint now is a vaguely described sense of abnormal feelings in his legs, variably described "as if my blood were flowing" or "tingling". He denies recent headaches. He was evaluated in the ER in March for about a week of head "pains" brief intermittent sharp pains at various points in his head, with no associated symptoms, such as photophobia, phonophobia or nausea. He had a normal CT and after a week the pains disappeared and haven't bothered him since. He says that over the past week he's been going to eye doctors complaining of intermittent bilateral visual blurring, not like this. He denies a family history of migraine. Patient states that the "eye doctor" was just in to see him and told him that he had a stroke in that eye, though I see no note from ophthalmology yet. He also states that a few minutes before I walked in both of his hands felt numb. I questioned him more and he said that his hands felt cooler. He further states that his often finds his feet to be cold. - Current Medication List Current Medications: Active Medications Famotidine/Sodium Chloride (Pepcid 20 Mg Premixed Ivpb -) 20 mg in 50 mls @ 100 mls/hr IVPB BID APARNA Last Admin: 07/21/17 10:26 Dose: 100 mls/hr - Objective Vital Signs: Vital Signs Temperature 98 F 07/21/17 10:00 Pulse Rate 78 07/21/17 10:00 Respiratory Rate 18 07/21/17 10:00 Blood Pressure 128/80 07/21/17 10:00 O2 Sat by Pulse Oximetry (%) 100 07/21/17 05:00 Neurological: Yes: Other (A and O x 3, language intact. CN II-XII intact. Motor 5/5, DTR"s 2/4 wth flexor plantars. Sensation intact.) Labs: CBC, BMP 07/20/17 08:58 07/20/17 08:58 INR, PTT INR 1.05 (0.82-1.09) 07/20/17 08:58 Problem List - Problems (1) Transient visual loss of right eye Code(s): H53.121 - TRANSIENT VISUAL LOSS, RIGHT EYE Assessment/Plan 3 minutes of central visual obscuration/blurring without associated headache. This places the problem prechiasmatic, either retinal or less likely in the optic nerve. This could be migrainous, though I'd consider it a diagnosis of exclusion as he has no associated headache and its a single event and we should rule out ocular pathology as well. If indeed there is opthalmologic evidence of [employer] occlusion/infarction, then this should be worked up. His complaints of "numbness" sound to me like they might be Raynaud's phenomenon and he probably should have rheumatology workup. Would suggest rheumatology consult. I'll order some rheum/hypercoagulable labs and geospatial scientist may wish to add to this.
[2017-07-21 15:07] VITALS: BP 142/79; PULSE 83; TEMP 98.8
--- NOTE | 2017-07-21 15:10 | DS ---
Physical Examination Vital Signs: Vital Signs Temperature 98.8 F 07/21/17 14:00 Pulse Rate 83 07/21/17 14:00 Respiratory Rate 18 07/21/17 14:00 Blood Pressure 142/79 07/21/17 14:00 O2 Sat by Pulse Oximetry (%) 100 07/21/17 05:00 Findings/Remarks: Spoke to Dr. Fuller re: labs ordered for tomorrow and recommendations Labs: CBC, BMP 07/20/17 08:58 07/20/17 08:58 Discharge Summary Reason For Visit: VISION LOSS RT EYE Current Active Problems Transient visual loss of right eye (Acute) Vision loss of right eye (Acute) - Instructions Diet, Activity, Other Instructions: Please return to the ED with new, persistent, or worsening symptoms. Please follow-up with providers as indicated. Referrals: Bradley Franco MD [Staff Physician] - (Please follow-up with ophthalmology within 2-3 days for further workup of your central retinal vein occlusion) Libby Vargas MD [Primary Care Provider] - 1 Week Connor Ayala MD [Staff Physician] - (Please follow-up with hematology for a hypercoaguable work-up with 1 week. ) Jalen Wadsworth MD [Staff Physician] - (Please follow-up with Rheumatology within 1 week for outpatient raynaud's testing) - Home Medications Comprehensive Discharge Medication List: Ambulatory Orders RX: Omeprazole 20 mg PO DAILY #0 tab 07/21/17
== END 2017-07-21 18:10 | disposition home or self-care (01) ==
LOC: JER 07:58 → UNDOADMOB 11:21 → JERBED 11:21 → J4W 14:08
PROVIDERS: ADMIT Hospitalist; ATTEND Registered Nurse
PROC: 3E033GC Introduction of Other Therapeutic Substance into Peripheral Vein, Percutaneous Approach (ICD-10-PCS; principal; 2017-07-20)
PROC: 3E0337Z Introduction of Electrolytic and Water Balance Substance into Peripheral Vein, Percutaneous Approach (ICD-10-PCS; 2017-07-20)
DX: H53.121 Transient visual loss, right eye (principal); Z87.891 Personal history of nicotine dependence
CPT/HCPCS: 36415; 70450-TC; 70540; 70551-TC; 80053; 81003; 82465; 82550; 83690; 83718; 83721; 84478; 84484; 85025; 85610; 86140; 86850; 86900; 86901; 93005; 93010; 93306-TC; 93880-TC; 99285-25; G0378

== ENCOUNTER 2017-07-27 04:41 | Emergency (ER) | payer OTHER ==
[2017-07-27] MEDS ORDERED: SODIUM CHLORIDE 500 ML IV STA (05:09)
--- NOTE | 2017-07-27 05:12 | PDOC ---
History of Present Illness - General Stated Complaint: ABD PAIN,HEADACHE Time Seen by Provider: 07/27/17 04:51 History Source: Patient Exam Limitations: No Limitations - History of Present Illness Initial Comments: 07/27/17 05:37 32yo Male patient with no significant past medical history recently admitted for vision changes r/o CVA 07-21-2017. Patient presents today with Chest pain and "feeling like his blood pressure is going up and down." Patient currently takes ASA 81mg po daily. He states symptoms began at 10pm last night and continues. He denies n/v/d, back pain, diff breathing, rash, cough, congestion, smoking, drug use, dysuria, hematuria, or any other complaints at this time. Presenting Symptoms: Chest Pain Timing/Duration: reports: constant. denies: getting worse, changing over time, intermittent, resolved prior to arrival, gone now, other Severity/Quality: reports: mild, sharp. denies: moderate, severe, aching, burning, dull, ingestion, pressure, stabbing, tearing, tightness, other Location: reports: central. denies: substernal, epigastric, shoulder, back, abdomen, other Chest Pain Radiation: reports: no radiation Activities at Onset: reports: no specific activity. denies: none, exertion, emotional upset, rest, sleep, eating, working, sexual intercourse, other Beta Solange Contraindications (Core Measure): Yes: Not Prescribed Past History - Travel Traveled outside of the country in the last 30 days: No Close contact w/someone who was outside of country & ill: No - Past Medical History Allergies/Adverse Reactions: Allergies Allergy/AdvReac Type Severity Reaction Status Date / Time No Known Allergies Allergy Verified 07/20/17 08:00 Home Medications: Ambulatory Orders Omeprazole 20 mg PO DAILY #0 tab 07/21/17 COPD: No GI Disorders: Yes (acid reflux) Hypercholesterolemia: Yes - Immunization History Immunization Up to Date: No - Suicide/Smoking/Psychosocial Hx Smoking Status: No Smoking History: Former smoker Have you smoked in the past 12 months: Yes Number of Cigarettes Smoked Daily: 0 If you are a former smoker, when did you quit?: 10 yrs ago 'Breaking Loose' booklet given: 07/20/17 Hx Alcohol Use: No Drug/Substance Use Hx: No Substance Use Type: None Cardiac Specific PMH - Complaint Specific PMHX Abdominal Aortic Aneurysm: No Angina: No Cardiac Arrhythmia: No Cardiac Stent: No GERD: No Myocardial Infarction: No Pacemaker: No Pulmonary Embolus: No Valvular Heart Disease: No Peripheral Vascular Disease: No Review of Systems - Review of Systems Able to Perform ROS?: Yes Is the patient limited Faroese proficient: No Cardiac (ROS): Yes: Chest Pain. No: Palpitations, Chest Tightness All Other Systems: Reviewed and Negative *Physical Exam - Vital Signs Last Vital Signs Temp Pulse Resp BP Pulse Ox 98.5 F 102 H 18 121/100 97 07/27/17 05:16 07/27/17 05:16 07/27/17 05:16 07/27/17 05:16 07/27/17 05:16 - Physical Exam General Appearance: Yes: Nourished, Appropriately Dressed. No: Apparent Distress, Mild Distress, Moderate Distress, Severe Distress Neck: positive: Trachea midline, Normal Thyroid, Supple. negative: Lymphadenopathy (R), Lymphadenopathy (L), Tender lateral, Tender midline Respiratory/Chest: positive: Lungs Clear, Normal Breath Sounds. negative: Chest Tender, Respiratory Distress, Accessory Muscle Use, Labored Respiration, Rapid RR, Rhonchi, Stridor, Wheezing Cardiovascular: positive: Regular Rhythm, Regular Rate Gastrointestinal/Abdominal: positive: Normal Bowel Sounds, Soft. negative: Tender, Distended, Guarding, Rebound, Tenderness Musculoskeletal: positive: Normal Inspection, Other (Reproducible chest pain on palpitation to left chest wall.). negative: CVA Tenderness, Decreased Range of Motion, Vertebral Tenderness Extremity: positive: Normal Capillary Refill, Normal Inspection, Normal Range of Motion. 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
[2017-07-27 05:19] VITALS: BMI 29.6
[2017-07-27 05:53] LABS: BASOPHIL 0.8 % (0-2.0); EOSINOPHIL 2.2 % (0-4.5); MCH 30.9 pg (25.7-33.7); MCHC 34.7 g/dl (32.0-35.9); MEAN CELL VOLUME 89.2 fl (80-96); MEAN PLT VOLUME 9.9 fl (7.5-11.1); NEUTROPHILS 42.8 % (42.8-82.8); PLATELET COUNT 245 K/MM3 (134-434); RDW 13.1 % (11.9-15.9); WHITE BLOOD COUNT 4.6 K/mm3 (4.0-10.0)
[2017-07-27] MEDS ORDERED: KETOROLAC TROMETHAMINE 30 MG/1 ML VIAL IVPUSH ONE (06:20)
[2017-07-27 06:34] LABS: ALBUMIN 4.7 g/dl (3.4-5.0); ANION GAP 7 (8-16); BILIRUBIN,TOTAL 0.8 mg/dL (0.2-1.0); CALCIUM 9.1 mg/dL (8.5-10.1); CO2 28 mmol/L (21-32); CREATININE 1.2 mg/dL (0.7-1.3); GLUCOSE,RANDOM 93 mg/dL (74-106); SGPT/ALT 25 U/L (12-78); TOT PROT 9.2 g/dl (6.4-8.2)
[2017-07-27 06:42] LABS: ALK PHOS 60 U/L (45-117); CPK 147 IU/L (39-308); THYROID STIMULATING HORMONE 4.74 uIU/ml (0.358-3.74); TROPONIN I < 0.02 ng/ml (0.00-0.05)
[2017-07-27 06:44] LABS: URINE APPEARANCE CLEAR; URINE BILIRUBIN NEGATIVE (NEGATIVE); URINE BLOOD NEGATIVE (NEGATIVE); URINE COLOR LTYELLOW; URINE GLUCOSE (UA) NEGATIVE (NEGATIVE); URINE KETONE 1+ (NEGATIVE); URINE NITRITE NEGATIVE (NEGATIVE); URINE PROTEIN NEGATIVE (NEGATIVE); URINE UROBILINOGEN NEGATIVE mg/dL (0.2-1.0)
[2017-07-27 06:45] LABS: SGOT/AST 13 U/L (15-37)
[2017-07-27] MEDS ORDERED: KETOROLAC TROMETHAMINE 30 MG/1 ML VIAL ONE (06:49)
--- NOTE | 2017-07-27 07:45 | PDOC ---
*Physical Exam - Vital Signs Last Vital Signs Temp Pulse Resp BP Pulse Ox 98.5 F 102 H 18 121/100 97 07/27/17 05:16 07/27/17 05:16 07/27/17 05:16 07/27/17 05:16 07/27/17 05:16 Heart Score/ECG Review #2 General ECG Interpretation: Sinus Rhythm, Normal Rate (rate 73) Compared to previous ECG there are: No significant change ED Treatment Course - LABORATORY CBC & Chemistry Diagram: 07/27/17 05:40 07/27/17 05:40 - ADDITIONAL ORDERS Additional order review: Laboratory Results 07/27/17 07/27/17 05:40 05:40 Sodium 133 L Potassium 4.3 Chloride 98 Carbon Dioxide 28 Anion Gap 7 L BUN 17 Creatinine 1.2 Creat Clearance w eGFR > 60 Random Glucose 93 Calcium 9.1 Total Bilirubin 0.8 D AST 13 L ALT 25 D Alkaline Phosphatase 60 Creatine Kinase 147 Troponin I < 0.02 Total Protein 9.2 H Albumin 4.7 TSH 4.74 H Urine Color Ltyellow Urine Appearance Clear Urine pH 6.0 Ur Specific [place] 1.011 Urine Protein Negative Urine Glucose (UA) Negative Urine Ketones 1+ H Urine Blood Negative Urine Nitrite Negative Urine Bilirubin Negative Urine Urobilinogen Negative 07/27/17 05:40 RBC 5.37 MCV 89.2 MCHC 34.7 RDW 13.1 MPV 9.9 Neutrophils % 42.8 D Lymphocytes % 43.4 H D Monocytes % 10.8 H Eosinophils % 2.2 Basophils % 0.8 - Medications Given in the ED: ED Medications Discontinued Medications Generic Name Dose Route Start Last Admin Trade Name Rejiq PRN Reason Stop Dose Admin Sodium Chloride 500 mls @ 500 mls/hr 07/27/17 05:09 07/27/17 05:57 Normal Saline - IV 07/27/17 06:08 500 mls/hr ASDIR STA Administration Ketorolac Tromethamine 30 mg 07/27/17 06:20 07/27/17 07:00 Toradol Injection - IVPUSH 07/27/17 06:21 30 mg ONCE ONE Administration Medical Decision Making - Medical Decision Making 07/27/17 07:40 Patient received in sign out from Alex Martinez. Patient with complaints of left lower chest pain. First troponin negative. Patient currently asymptomatic. Patient did receive Toradol. Patient is due for second troponin EKG at 940. 07/27/17 07:44 Laboratory Tests 07/27/17 07/27/17 05:40 05:40 Sodium 133 L TSH 4.74 H Urine Ketones 1+ H Patient currently receiving IV fluid. Patient also states no history of thyroid disease. Patient is followed by Dr. Ramirez at the clinic. Patient is to follow- up with her and will be given copy of labs once discharged. 07/27/17 08:56 Laboratory Tests 07/27/17 05:40 Lipase 97 07/27/17 10:41 Patient remains asymptomatic. Patient second EKG within normal limits. Patient pending second troponin. 07/27/17 11:34 Laboratory Tests 07/27/17 10:40 Creatine Kinase 148 Troponin I < 0.02 Patient will be discharged home and told to follow up with Dr. Ramirez as discussed. Patient also has an appointment with the last picker next week. *DC/Admit/Observation/Transfer Diagnosis at time of Disposition: Atypical chest pain - Discharge Dispostion Disposition: HOME Condition at time of disposition: Improved - Referrals Referrals: Libby Vargas MD [Primary Care Provider] - - Patient Instructions Printed Discharge Instructions: DI for Hypothyroidism, DI for Atypical Chest Pain Additional Instructions: Please follow-up with your primary care doctor & bring copy of your labs with you. Please also follow-up with the last picker as discussed. Please return to ED at any given time if symptoms return or worsen. - Post Discharge Activity Forms/Work/School Notes: Back to Work
[2017-07-27 11:21] LABS: CPK 148 IU/L (39-308); TROPONIN I < 0.02 ng/ml (0.00-0.05)
[2017-07-27 11:47] VITALS: BP 130/78; PULSE 71; TEMP 98.4
--- NOTE | 2017-07-27 12:51 | EKG ---
Test Reason : Blood Pressure : / mmHG Vent. Rate : 073 BPM Atrial Rate : 073 BPM P-R Int : 166 ms QRS Dur : 092 ms QT Int : 366 ms P-R-T Axes : 060 062 041 degrees QTc Int : 403 ms NORMAL SINUS RHYTHM NORMAL ECG WHEN COMPARED WITH ECG OF 27-JUL-2017 07:04, NO SIGNIFICANT CHANGE WAS FOUND Confirmed by RENO OWEN MD ([id number]) on 07/27/2017 12:50:29 PM Referred By: Confirmed By:RENO OWEN MD
--- NOTE | 2017-07-27 12:52 | EKG ---
Test Reason : Blood Pressure : / mmHG Vent. Rate : 072 BPM Atrial Rate : 072 BPM P-R Int : 166 ms QRS Dur : 098 ms QT Int : 360 ms P-R-T Axes : 064 059 052 degrees QTc Int : 394 ms NORMAL SINUS RHYTHM NORMAL ECG WHEN COMPARED WITH ECG OF 20-JUL-2017 09:24, NONSPECIFIC T WAVE ABNORMALITY NO LONGER EVIDENT IN INFERIOR LEADS Confirmed by BRAYDEN RODRIGUEZ, RENO ([id number]) on 07/27/2017 12:51:46 PM Referred By: Confirmed By:RENO OWEN MD
[2017-07-27 16:52] LABS: URINE LEUK ESTERASE Negative (NEGATIVE)
== END 2017-07-27 11:46 | disposition home or self-care (01) ==
LOC: JER 04:41
PROC: 3E0333Z Introduction of Anti-inflammatory into Peripheral Vein, Percutaneous Approach (ICD-10-PCS; principal; 2017-07-27)
PROC: 3E0337Z Introduction of Electrolytic and Water Balance Substance into Peripheral Vein, Percutaneous Approach (ICD-10-PCS; 2017-07-27)
DX: R07.89 Other chest pain (principal); K21.9 Gastro-esophageal reflux disease without esophagitis; E78.00 Pure hypercholesterolemia, unspecified; Z87.891 Personal history of nicotine dependence
CPT/HCPCS: 36415; 71020-TC; 80053; 81003; 82550; 83690; 84443; 84484; 85025; 85379; 93005; 93010; 99285-25

== ENCOUNTER 2017-07-30 21:24 | Emergency (ER) | payer OTHER ==
[2017-07-30 21:40] VITALS: BMI 29.1
--- NOTE | 2017-07-30 22:11 | PDOC ---
History of Present Illness - General Chief Complaint: Weakness Stated Complaint: FATIGUE Time Seen by Provider: 07/30/17 22:09 - History of Present Illness Initial Comments: 07/30/17 22:43 Mr. Agudelo is a 32 yo male with pmh of 2 prior visits recently who presents after he woke up earlier this evening with bilateral leg tingling as well as "tightness" in the region of his left eyebrow with associated headache. He reports this has happened before and he his very concerned. He had previously presented on the for different complaint where he experienced 3 minutes of central visual obscuration/blurring without associated headache. He was evaluated by neurology at the time who considered migraine but was unable to say for sure. He had a negative Head/face CT and negative Brain MRI at this time as well as a negative carotid dopler. He represented on the complaining of sharp chest pains and was discharged after negative troponins, unconcerning EKG, and negative CXR. Mr. Agudelo also describes a pressure in his abdomen that he says pushes up and down at times. Past History - Past Medical History Allergies/Adverse Reactions: Allergies Allergy/AdvReac Type Severity Reaction Status Date / Time No Known Allergies Allergy Verified 07/20/17 08:00 Home Medications: Ambulatory Orders Omeprazole 20 mg PO DAILY #0 tab 07/21/17 Aspirin [ASA -] 325 mg PO DAILY 07/30/17 COPD: No GI Disorders: Yes (acid reflux) Hypercholesterolemia: Yes - Immunization History Immunization Up to Date: No - Suicide/Smoking/Psychosocial Hx Smoking Status: No Smoking History: Never smoked Have you smoked in the past 12 months: Yes Number of Cigarettes Smoked Daily: 0 If you are a former smoker, when did you quit?: 10 yrs ago 'Breaking Loose' booklet given: 07/20/17 Hx Alcohol Use: No Drug/Substance Use Hx: No Substance Use Type: None Review of Systems - Review of Systems Comments:: 07/30/17 22:51 As above *Physical Exam - Vital Signs Last Vital Signs Temp Pulse Resp BP Pulse Ox 98.1 F 79 16 120/51 99 07/30/17 21:39 07/30/17 21:39 07/30/17 21:39 07/30/17 21:39 07/30/17 21:39 - Physical Exam Comments: 07/30/17 22:51 GENERAL: +Patient currently slurring words slightly. Awake, alert, and fully oriented, in no acute distress HEAD: No signs of trauma, normocephalic, atraumatic EYES: PERRLA, EOMI, sclera anicteric, conjunctiva clear ENT: +Large tongue noted on exam. Auricles normal inspection, hearing grossly normal, nares patent, oropharynx clear without exudates. Moist mucosa NECK: Normal ROM, supple, no lymphadenopathy, JVD, or masses LUNGS: No distress, speaks full sentences, clear to auscultation bilaterally HEART: Regular rate and rhythm, normal S1 and S2, no murmurs, rubs or gallops, peripheral pulses normal and equal bilaterally. ABDOMEN: Soft, nontender, normoactive bowel sounds. No guarding, no rebound. No masses EXTREMITIES: Normal inspection, Normal range of motion, no edema. No clubbing or cyanosis. NEUROLOGICAL: Cranial nerves II through XII grossly intact. Normal speech, normal gait, no focal sensorimotor deficits SKIN: Warm, Dry, normal turgor, no rashes or lesions noted. ED Treatment Course - LABORATORY CBC & Chemistry Diagram: 07/30/17 23:02 07/30/17 23:02 Medical Decision Making - Medical Decision Making 07/30/17 23:58 Patient presents with fatigue and confusion/headache upon wakeup - noted to have large tongue on exam. Patient reports complete resolution of his symptoms at this time. Suspect obstructive sleep apnea as etiology of symptoms. Patient will be referred to sleep clinic for follow-up and discussed need to follow-up with rhemumatology at scheduled appt on the . 07/31/17 00:04 *DC/Admit/Observation/Transfer Diagnosis at time of Disposition: Headache above the eye region - Discharge Dispostion Disposition: HOME - Referrals - Patient Instructions Printed Discharge Instructions: DI for Obstructive Sleep Apnea -- Adult Additional Instructions: Please contact the sleep center at [phone] to set up a sleep study for evaluation for obstructive sleep apnea. Return to ER if any fever, chills, or any other concerning symptoms. - Post Discharge Activity
[2017-07-30] MEDS ORDERED: METOCLOPRAMIDE HCL INJECTION 10 MG/2 ML VIAL IM ONE (23:02)
[2017-07-30] MEDS ORDERED: ACETAMINOPHEN 325 MG TABLET (FP) PO ONE (23:02)
[2017-07-30 23:15] LABS: BASOPHIL 0.6 % (0-2.0); EOSINOPHIL 1.8 % (0-4.5); MCH 31.2 pg (25.7-33.7); MCHC 35.1 g/dl (32.0-35.9); MEAN PLT VOLUME 10.3 fl (7.5-11.1); NEUTROPHILS 42.8 % (42.8-82.8); PLATELET COUNT 231 K/MM3 (134-434); RDW 13.1 % (11.9-15.9); WHITE BLOOD COUNT 5.7 K/mm3 (4.0-10.0)
[2017-07-30 23:23] LABS: VENOUS PH 7.33 (7.32-7.42)
[2017-07-30 23:24] LABS: VENOUS BLOOD GAS HCO3 27.9 meq/L (19-25)
[2017-07-30 23:41] LABS: ANION GAP 9 (8-16); CALCIUM 9.9 mg/dL (8.5-10.1); CO2 30 mmol/L (21-32); CREATININE 1.1 mg/dL (0.7-1.3); GLUCOSE,RANDOM 81 mg/dL (74-106)
--- NOTE | 2017-07-30 23:58 | PDOC ---
Attending Attestation - Resident Resident Name: Prosper Napoles - ED Attending Attestation I have performed the following: I have examined & evaluated the patient, The case was reviewed & discussed with the resident, I agree w/resident's findings & plan - HPI HPI: 07/30/17 23:57 Pt comes with fatigue and headache that he experiences every time he wakes up. - Physicial Exam PE: 07/30/17 23:57 Normal exam. - Medical Decision Making 07/30/17 23:58 Pt follows with sleep study center to r/o sleep apnea.
[2017-07-31] MEDS ORDERED: METOCLOPRAMIDE HCL INJECTION 10 MG/2 ML VIAL ONE (00:13)
[2017-07-31] MEDS ORDERED: ACETAMINOPHEN 325 MG TABLET (FP) ONE (00:13)
[2017-07-31 00:38] VITALS: BP 120/52; PULSE 80; TEMP 98
== END 2017-07-31 00:38 | disposition home or self-care (01) ==
LOC: JER 21:24
PROC: 3E023GC Introduction of Other Therapeutic Substance into Muscle, Percutaneous Approach (ICD-10-PCS; principal; 2017-07-30)
DX: R51 Headache (principal)
CPT/HCPCS: 36415; 80048; 82803; 85025; 85651; 96372; 99282-25

== ENCOUNTER 2020-09-24 21:47 | Emergency (ER) | payer OTHER ==
[2020-09-24 22:19] VITALS: BP 126/81; PULSE 93; TEMP 100.4; BMI 32.5
[2020-09-24] MEDS ORDERED: ACETAMINOPHEN 500 MG TABLET (FP) PO ONE (22:37)
[2020-09-24] MEDS ORDERED: ACETAMINOPHEN 500 MG TABLET (FP) ONE (22:40)
== END 2020-09-24 22:40 | disposition home or self-care (01) ==
LOC: JER 21:47
DX: U07.1 COVID-19 (principal)
CPT/HCPCS: 71046-TC-FY; 93005; 93010; 99285-25; C9803; U0003

== ENCOUNTER 2020-12-08 13:40 | Emergency (ER) | payer OTHER ==
[2020-12-08 13:49] VITALS: BP 137/93; PULSE 71; TEMP 98.6; BMI 35.2
[2020-12-08 14:55] LABS: BASO % 0.5 % (0-2.0); EOS % 1.5 % (0-4.5); HEMOGLOBIN 15.4 GM/dL (11.7-16.9); LYMPH % 32.4 % (8-40); MCH 31.6 pg (25.7-33.7); MCHC 34.9 g/dl (32.0-35.9); MEAN CELL VOLUME 90.6 fl (80-96); MEAN PLT VOLUME 10.1 fl (7.5-11.1); MONO % 8.9 % (3.8-10.2); NEUT % 56.7 % (42.8-82.8); PLATELET COUNT 205 K/MM3 (134-434); RBC 4.85 M/mm3 (4.00-5.60); RDW 15.1 % (11.9-15.9); WHITE BLOOD COUNT 6.2 K/mm3 (4.0-10.0)
== END 2020-12-08 15:28 | disposition home or self-care (01) ==
LOC: JER 13:40 → JERFT 13:40
DX: R07.9 Chest pain, unspecified (principal)
CPT/HCPCS: 36415; 71046-TC-FY; 82550; 84484; 85025; 93005; 93010; 99285-25

== ENCOUNTER 2021-04-06 01:29 | Emergency (ER) | payer OTHER ==
[2021-04-06 02:33] VITALS: BMI 46.8
[2021-04-06] MEDS ORDERED: ACETAMINOPHEN 1000 MG/100 ML VIAL (NON FORMULARY) IVPB ONE (03:08)
[2021-04-06] MEDS ORDERED: ACETAMINOPHEN 500 MG TABLET (FP) PO ONE (03:30)
[2021-04-06] MEDS ORDERED: ACETAMINOPHEN 325 MG TABLET (FP) ONE (03:40)
[2021-04-06 06:13] VITALS: BP 126/72; PULSE 71; TEMP 98.3
== END 2021-04-06 09:19 | disposition short-term general hospital (02) ==
LOC: JER 01:29
DX: S52.92XA Unspecified fracture of left forearm, initial encounter for closed fracture (principal); V29.20XA Unspecified motorcycle rider injured in collision with unspecified motor vehicles in nontraffic accident, initial encounter
CPT/HCPCS: 73070-TC-RT-FY; 73562-TC-LT-FY; 99284-25

== ENCOUNTER 2025-05-12 00:23 | Inpatient (IN) | payer OTHER ==
[2025-05-12 01:44] LABS: ABSOLUTE IMMATURE GRANULOCYTES 0.02 x10^3/uL (0.0-0.031); BASOPHILS # 0.03 x10^3/uL (0.01-0.08); BG HCT 48.0 % (35.4-49); EOSINOPHIL % 0.9 % (0.8-7.0); EOSINOPHILS # 0.05 x10^3/uL (0.04-0.54); MCHC 34.2 g/dl (32.3-36.5); MEAN CELL VOLUME 88.6 fl (79.0-92.2); MEAN PLT VOLUME 13.2 fl (9.4-12.4); MONOCYTE # 0.56 x10^3/uL (0.30-0.82); MONOCYTE % 9.6 % (5.3-12.2); RDW 11.7 % (12.0-15.6); VENOUS BASE EXCESS -5.9 mmol/L (-2-2); VENOUS O2 SATURATION 97.3 % (70-80); VENOUS PCO2 33.9 mmHg (38-52); VENOUS PH 7.356 (7.310-7.410)
[2025-05-12 02:11] LABS: GLUCOSE,RANDOM 606 mg/dL (74-106)
[2025-05-12 02:12] LABS: TOT PROT 9.4 g/dl (6.4-8.2)
[2025-05-12 02:13] LABS: CO2 20 mmol/L (21-32)
[2025-05-12 02:14] LABS: ALK PHOS 80 U/L (40-150)
[2025-05-12] MEDS: LACTATED RINGERS SOLUTION 1000 ML INFUS.BAG IV ONE ×2 (02:15→02:33)
[2025-05-12 02:17] LABS: SGOT/AST 21 U/L (5-34); SGPT/ALT 30 U/L (0-55)
[2025-05-12 02:42] LABS: HCV DIAGNOSTIC IN-HOUSE W/RFLX NON-REACTIVE (NONREACTIVE); HIV INTERPRETATION NEGATIVE (NEGATIVE)
[2025-05-12] MEDS: INSULIN REGULAR HUMAN 100 UNITS/ML *VIAL IVPUSH ONE ×2 (02:47→05:53)
[2025-05-12] MEDS: INSULIN REGULAR 100 UNITS in SODIUM CHLORIDE 99 ML IVPB SCH (02:48)
[2025-05-12 03:19] LABS: CREATININE 1.11 mg/dL (0.55-1.3)
[2025-05-12 03:37] LABS: URINE APPEARANCE CLEAR; URINE BILIRUBIN NEGATIVE (NEGATIVE); URINE COLOR YELLOW; URINE GLUCOSE (UA) 3+ (NEGATIVE); URINE KETONE 3+ (NEGATIVE); URINE LEUK ESTERASE NEGATIVE (NEGATIVE); URINE NITRITE NEGATIVE (NEGATIVE); URINE PROTEIN NEGATIVE (NEGATIVE); URINE UROBILINOGEN 0.2 mg/dL (0.2-1.0)
[2025-05-12 04:50] LABS: GLUCOSE,RANDOM 414 mg/dL (74-106); TOT PROT 8.0 g/dl (6.4-8.2)
[2025-05-12 04:51] LABS: CO2 20 mmol/L (21-32)
[2025-05-12 04:53] LABS: ALK PHOS 68 U/L (40-150)
[2025-05-12 04:55] LABS: CREATININE 1.01 mg/dL (0.55-1.3); SGOT/AST 16 U/L (5-34); SGPT/ALT 25 U/L (0-55)
[2025-05-12] MEDS: SODIUM CHLORIDE 1,000 ML IV STA (05:54)
[2025-05-12] MEDS ORDERED: ONDANSETRON 4 MG/2 ML VIAL IVPUSH PRN (05:58)
[2025-05-12 06:46] LABS: MCHC 33.6 g/dl (32.3-36.5); MEAN CELL VOLUME 90.0 fl (79.0-92.2); MEAN PLT VOLUME 13.3 fl (9.4-12.4); RDW 11.8 % (12.0-15.6)
[2025-05-12 07:15] LABS: COCAINE, UR NEGATIVE (NEGATIVE)
[2025-05-12 07:16] LABS: METHADONE, UR NEGATIVE (NEGATIVE); OPIATES, URI NEGATIVE (NEGATIVE); PHENCYCLIDINE,URINE NEGATIVE (NEGATIVE); URINE AMPHETAMINES NEGATIVE (NEGATIVE); URINE BARBITURATES NEGATIVE (NEGATIVE); URINE BENZODIAZEPINES NEGATIVE (NEGATIVE)
[2025-05-12 07:17] LABS: GLUCOSE,RANDOM 317.0 mg/dL (74-106)
[2025-05-12 07:18] LABS: TOT PROT 8.2 g/dl (6.4-8.2)
[2025-05-12 07:19] LABS: CO2 20.0 mmol/L (21-32)
[2025-05-12 07:20] LABS: ALK PHOS 68.0 U/L (40-150)
[2025-05-12 07:23] LABS: SGOT/AST 15.0 U/L (5-34); SGPT/ALT 25.0 U/L (0-55)
[2025-05-12 07:24] LABS: CREATININE 0.93 mg/dL (0.55-1.3)
[2025-05-12] MEDS: SODIUM CHLORIDE 1,000 ML IV SCH (07:24)
[2025-05-12] MEDS ORDERED: INSULIN GLARGINE (LANTUS) 100 UNITS/ML UNITS SQ ONE (07:35)
[2025-05-12] MEDS: INSULIN GLARGINE (LANTUS) 100 UNITS/ML UNITS SQ SCH (07:44)
[2025-05-12] MEDS ORDERED: POTASSIUM CHLORIDE TABS 20 MEQ TABLET.ER (FP) PO ONE (08:51)
[2025-05-12] MEDS: POTASSIUM CHLORIDE TABS 20 MEQ TABLET.ER (FP) PO ONE (08:58)
[2025-05-12] MEDS: MONTELUKAST NA 10 MG TABLET PO SCH (10:13)
[2025-05-12] MEDS: ENOXAPARIN NA (PORCINE) 40 MG/0.4 ML DISP.SYRIN SQ SCH (10:13)
[2025-05-12 10:55] VITALS: BMI 31.8
[2025-05-12] MEDS: INSULIN (NOVOLOG) ASPART 100 UNITS/ML 10ML VIAL SQ SCH (11:44)
[2025-05-12] MEDS: INSULIN ASPART SLIDING SCALE (NOVOLOG) 1 VIAL SQ SCH (11:45)
[2025-05-12 15:49] LABS: GLUCOSE,RANDOM 467 mg/dL (74-106)
[2025-05-12 15:50] LABS: CO2 18 mmol/L (21-32)
[2025-05-12 15:55] LABS: CREATININE 0.83 mg/dL (0.55-1.3)
[2025-05-12] MEDS ORDERED: INSULIN ASPART SLIDING SCALE (NOVOLOG) 1 VIAL SQ ONE (21:20)
[2025-05-12] MEDS: ATORVASTATIN CA 10 MG TABLET (FP) PO SCH (21:31)
[2025-05-13 06:46] LABS: IMMATURE PLATELET FRACTION # 22.10 x10^3/uL; MCHC 33.9 g/dl (32.3-36.5); MEAN CELL VOLUME 89.4 fl (79.0-92.2); MEAN PLT VOLUME 13.4 fl (9.4-12.4); RDW 11.6 % (12.0-15.6)
[2025-05-13 07:50] LABS: GLUCOSE,RANDOM 291.0 mg/dL (74-106)
[2025-05-13 07:51] LABS: TOT PROT 6.9 g/dl (6.4-8.2)
[2025-05-13 07:52] LABS: CO2 21.0 mmol/L (21-32)
[2025-05-13 07:54] LABS: ALK PHOS 54.0 U/L (40-150)
[2025-05-13 07:56] LABS: SGOT/AST 35.0 U/L (5-34); SGPT/ALT 33.0 U/L (0-55)
[2025-05-13 07:57] LABS: CREATININE 0.74 mg/dL (0.55-1.3)
[2025-05-13] MEDS ORDERED: INSULIN ASPART SLIDING SCALE (NOVOLOG) 1 VIAL SQ ONE (10:06)
[2025-05-13] MEDS: INSULIN GLARGINE (LANTUS) 100 UNITS/ML UNITS SQ SCH (21:19)
[2025-05-13] MEDS: INSULIN ASPART SLIDING SCALE (NOVOLOG) 1 VIAL SQ SCH (21:20)
[2025-05-14] MEDS: INSULIN GLARGINE (LANTUS) 100 UNITS/ML UNITS SQ SCH (06:26)
[2025-05-14 08:15] LABS: ABSOLUTE IMMATURE GRANULOCYTES 0.01 x10^3/uL (0.0-0.031); BASOPHILS # 0.02 x10^3/uL (0.01-0.08); EOSINOPHIL % 2.0 % (0.8-7.0); EOSINOPHILS # 0.07 x10^3/uL (0.04-0.54); MCHC 34.4 g/dl (32.3-36.5); MEAN CELL VOLUME 87.3 fl (79.0-92.2); MEAN PLT VOLUME 13.2 fl (9.4-12.4); MONOCYTE # 0.33 x10^3/uL (0.30-0.82); MONOCYTE % 9.6 % (5.3-12.2); RDW 11.5 % (12.0-15.6)
[2025-05-14 08:35] LABS: GLUCOSE,RANDOM 230.0 mg/dL (74-106); TOT PROT 7.0 g/dl (6.4-8.2)
[2025-05-14 08:37] LABS: CO2 24.0 mmol/L (21-32)
[2025-05-14 08:38] LABS: ALK PHOS 56.0 U/L (40-150)
[2025-05-14 08:41] LABS: CREATININE 0.78 mg/dL (0.55-1.3); SGOT/AST 57.0 U/L (5-34); SGPT/ALT 60.0 U/L (0-55)
[2025-05-14] MEDS: INSULIN (NOVOLOG) ASPART 100 UNITS/ML 10ML VIAL SQ SCH (08:49)
[2025-05-14] MEDS: INSULIN GLARGINE (LANTUS) 100 UNITS/ML UNITS SQ ONE (08:50)
[2025-05-14] MEDS: MAGNESIUM 2GM/50ML STERILE WATER IVPB IVPB ONE (09:09)
[2025-05-14] MEDS ORDERED: ALBUTEROL SO4 HFA INHALER IH PRN (09:29)
[2025-05-14] MEDS ORDERED: SODIUM CHLORIDE 1,000 ML IV SCH (09:29)
[2025-05-14] MEDS ORDERED: ONDANSETRON 4 MG/2 ML VIAL IVPUSH PRN (09:29)
[2025-05-14] MEDS: MONTELUKAST NA 10 MG TABLET PO SCH (10:33)
[2025-05-14] MEDS: MAGNESIUM SULF 50% (8.12 MEQ/2 ML-1 GM VIAL) IVPB ONE (10:33)
[2025-05-14] MEDS: ENOXAPARIN NA (PORCINE) 40 MG/0.4 ML DISP.SYRIN SQ SCH (10:33)
[2025-05-14] MEDS: POTASSIUM CHLORIDE ORAL LIQUID 20 MEQ/15 ML PO ONE (10:58)
[2025-05-14] MEDS ORDERED: INSULIN (NOVOLOG) ASPART 100 UNITS/ML 10ML VIAL SQ SCH (11:00)
[2025-05-14] MEDS: metFORMIN HCL 500 MG TABLET (FP) PO SCH (16:54)
[2025-05-14] MEDS: INSULIN ASPART SLIDING SCALE (NOVOLOG) 1 VIAL SQ SCH (16:54)
[2025-05-14] MEDS: ATORVASTATIN CA 10 MG TABLET (FP) PO SCH (21:04)
[2025-05-15] MEDS: INSULIN GLARGINE (LANTUS) 100 UNITS/ML UNITS SQ SCH ×2 (06:09→21:27)
[2025-05-15 06:50] LABS: ABSOLUTE IMMATURE GRANULOCYTES 0.00 x10^3/uL (0.0-0.031); BASOPHILS # 0.02 x10^3/uL (0.01-0.08); EOSINOPHIL % 1.9 % (0.8-7.0); EOSINOPHILS # 0.07 x10^3/uL (0.04-0.54); MCHC 34.4 g/dl (32.3-36.5); MEAN CELL VOLUME 87.6 fl (79.0-92.2); MEAN PLT VOLUME 12.7 fl (9.4-12.4); MONOCYTE # 0.35 x10^3/uL (0.30-0.82); MONOCYTE % 9.5 % (5.3-12.2); RDW 11.7 % (12.0-15.6)
[2025-05-15 06:57] LABS: LDL CHOLESTEROL (ONLY SJRH) 151 mg/dL (5-100)
[2025-05-15 07:04] LABS: GLUCOSE,RANDOM 237.0 mg/dL (74-106)
[2025-05-15 07:05] LABS: TOT PROT 6.6 g/dl (6.4-8.2)
[2025-05-15 07:06] LABS: CO2 22.0 mmol/L (21-32)
[2025-05-15 07:08] LABS: ALK PHOS 54.0 U/L (40-150)
[2025-05-15 07:10] LABS: SGOT/AST 62.0 U/L (5-34); SGPT/ALT 75.0 U/L (0-55)
[2025-05-15 07:11] LABS: CREATININE 0.81 mg/dL (0.55-1.3)
[2025-05-15 09:19] VITALS: RESP 18
[2025-05-16 09:19] LABS: ABSOLUTE IMMATURE GRANULOCYTES 0.00 x10^3/uL (0.0-0.031); BASOPHILS # 0.01 x10^3/uL (0.01-0.08); EOSINOPHIL % 1.5 % (0.8-7.0); EOSINOPHILS # 0.06 x10^3/uL (0.04-0.54); MCHC 34.4 g/dl (32.3-36.5); MEAN CELL VOLUME 87.2 fl (79.0-92.2); MEAN PLT VOLUME 13.3 fl (9.4-12.4); MONOCYTE # 0.41 x10^3/uL (0.30-0.82); MONOCYTE % 10.4 % (5.3-12.2); RDW 11.7 % (12.0-15.6)
[2025-05-16 10:05] LABS: GLUCOSE,RANDOM 252.0 mg/dL (74-106); TOT PROT 6.9 g/dl (6.4-8.2)
[2025-05-16 10:06] LABS: CO2 23.0 mmol/L (21-32)
[2025-05-16 10:08] LABS: ALK PHOS 57.0 U/L (40-150)
[2025-05-16 10:11] LABS: CREATININE 0.81 mg/dL (0.55-1.3); SGOT/AST 85.0 U/L (5-34); SGPT/ALT 113.0 U/L (0-55)
[2025-05-16 12:17] VITALS: BP 120/83; PULSE 77; TEMP 98.1
== END 2025-05-16 14:22 | disposition home or self-care (01) | DRG 420 ==
LOC: JER 00:23 → JERBED 00:48 → OBSVTOIN 00:48 → J2W 09:16 → J6S 05-13 12:17
PROVIDERS: ADMIT Internal Medicine; ATTEND Internal Medicine
DX: E11.10 Type 2 diabetes mellitus with ketoacidosis without coma (principal); I10 Essential (primary) hypertension; E78.5 Hyperlipidemia, unspecified; J45.909 Unspecified asthma, uncomplicated; E83.39 Other disorders of phosphorus metabolism; E83.42 Hypomagnesemia; R74.01 Elevation of levels of liver transaminase levels; G56.21 Lesion of ulnar nerve, right upper limb; R55 Syncope and collapse; E66.9 Obesity, unspecified; Z68.32 Body mass index [BMI] 32.0-32.9, adult
CPT/HCPCS: 36415; 71045-TC-FY; 80048; 80053; 80061; 80307; 81003; 82010; 82803; 82962; 83036; 83605; 83690; 83735; 84100; 84484; 85025; 86803; 87086; 87389; 93005; 93010; 97116-GP; 97161-GP; 99291